=== PATIENT | female | born 1990 | race Caucasian/White ===

== ENCOUNTER 2016-10-02 14:46 | Emergency (ER) | payer OTHER ==
[~2016-10-02] VITALS: Ht 170.2 cm; Wt 57.6 kg
[~2016-10-02 14:46] MED LIST: APAP500 PO; DERMOPLAST SPRA56 ML; IBUPROFEN 800800 M1 PO; LANOLIN56 GM; LOCOID 0.1% CRE15 GM TP; PRENATAL PO; TUCKS MEDICATE1 EAC1 TOP
[2016-10-02 15:19] LABS: ABSOLUTE NEUTROPHILS 5.4 thou/uL (1.4-8.2); BASOPHILS 0.8 % (0.0-2.0); EOSINOPHILS 0.9 % (0.0-3.0); HEMATOCRIT 43.3 % (37.0-47.0); HEMOGLOBIN 14.5 gm/dL (12.0-15.0); LYMPHOCYTES 22.5 % (24.0-44.0); MCH 30.3 pg (26.0-34.0); MCHC 33.6 % (28.0-37.0); MCV 90.2 fL (80.0-100.0); MONOCYTES 9.3 % (1.0-8.0); PLATELET COUNT 185 thou/uL (150-400); POLYS 66.5 % (36.0-66.0); RDW 12.4 % (10.5-14.5); WBC 8.1 thou/uL (4.0-11.0)
[2016-10-02 15:20] LABS: MANUAL DIFF NO
[2016-10-02 15:26] LABS: URINE BILIRUBIN NEGATIVE (Negative); URINE BLOOD 2+ (Negative); URINE COLOR YELLOW; URINE GLUCOSE-RANDOM* NEGATIVE (Negative); URINE KETONES NEGATIVE (Negative); URINE NITRITE NEGATIVE (Negative); URINE PROTEIN (DIPSTICK) NEGATIVE (Negative); URINE UROBILINOGEN 0.2 E.U./dl (0.2-1.0)
[2016-10-02 15:27] LABS: CALCIUM 9.1 mg/dL (8.5-10.1); CREATININE 0.7 mg/dL (0.6-1.3); POTASSIUM 3.6 mmol/L (3.5-5.1)
[2016-10-02 15:35] LABS: SQUAMOUS >10 Many /LPF (0-3)
[2016-10-02 15:36] LABS: BACTERIA 1-9 Few /HPF (None Seen); CASTS None Seen /LPF (None Seen); CRYSTALS None Seen /LPF (None Seen); URINE WBC None Seen /HPF (0-5)
[2016-10-02 16:10] VITALS: BP 159/67
== END 2016-10-02 16:11 | disposition home or self-care (01) ==
LOC: ER 14:46
PROVIDERS: Nurse Practitioner
DX: J06.9 Acute upper respiratory infection, unspecified (principal); F41.9 Anxiety disorder, unspecified; Z88.8 Allergy status to other drugs, medicaments and biological substances; F17.210 Nicotine dependence, cigarettes, uncomplicated; F10.99 Alcohol use, unspecified with unspecified alcohol-induced disorder

== ENCOUNTER 2017-03-24 13:49 | Emergency (ER) | payer BC ==
[~2017-03-24] VITALS: Ht 170.2 cm; Wt 56.7 kg
[2017-03-24] MEDS ORDERED: IBUPROFEN 600600 M1 PO (15:33)
[2017-03-24] MEDS ORDERED: LIDODERM 5%1 PATC1 TRANSDERM (15:35)
[2017-03-24] MEDS ORDERED: NORCO 5-325 TA1 EACH PO (15:59)
[2017-03-24 16:03] VITALS: BP 135/92
== END 2017-03-24 16:00 | disposition home or self-care (01) ==
LOC: ER 13:49
DX: S20.212A Contusion of left front wall of thorax, initial encounter (principal); J90 Pleural effusion, not elsewhere classified; F41.9 Anxiety disorder, unspecified; F17.210 Nicotine dependence, cigarettes, uncomplicated; F10.99 Alcohol use, unspecified with unspecified alcohol-induced disorder; Z88.8 Allergy status to other drugs, medicaments and biological substances; W18.09XA Striking against other object with subsequent fall, initial encounter; Y93.89 Activity, other specified; Y92.89 Other specified places as the place of occurrence of the external cause; Y99.8 Other external cause status

== ENCOUNTER 2017-04-25 12:42 | Emergency (ER) | payer BC ==
[~2017-04-25] VITALS: Ht 170.2 cm; Wt 65.3 kg
[~2017-04-25 12:42] MED LIST changes: +IBUPROFEN 600600 M1 PO; +LIDODERM 5%1 PATC1 TRANSDERM; +NORCO 5-325 TA1 EACH PO
[2017-04-25] MEDS ORDERED: TRAMADOL 50 MG50 MG PO (13:19)
[2017-04-25] MEDS ORDERED: LIDODERM 5%1 PATC1 TRANSDERM (14:38)
[2017-04-25 14:47] VITALS: BP 136/80
== END 2017-04-25 14:48 | disposition home or self-care (01) ==
LOC: ER 12:42
DX: S22.42XD Multiple fractures of ribs, left side, subsequent encounter for fracture with routine healing (principal); X58.XXXD Exposure to other specified factors, subsequent encounter; F41.9 Anxiety disorder, unspecified; F17.210 Nicotine dependence, cigarettes, uncomplicated; Z88.8 Allergy status to other drugs, medicaments and biological substances